=== PATIENT | female | born 1985 | race Caucasian/White ===

== ENCOUNTER 2018-03-30 13:22 | Emergency (ER) | payer OTHER ==
[2018-03-30 13:41] VITALS: O2SAT 100
[2018-03-30 14:09] VITALS: RESP 20
--- NOTE | 2018-03-30 14:42 | C.PDOC ---
History Of Present Illness Patient is a 32 year old female, with no medical problems, who presents to the ED c/o cough, sore throat, headache, and body aches that began 4 days ago. Patient states that she has not taken any medications for her symptoms. She denies any fever, SOB, nausea, vomiting, diarrhea, or sick contacts. HPI: Influenza Time Seen by Provider: 03/30/18 13:44 Chief Complaint: Flu-like Symptoms History Per: Patient Exam Limitations: no limitations Onset/Duration Of Symptoms: Days (3) Symptoms include: headache, bodyaches, sore throat, cough. denies: fever, vomiting, diarrhea, difficulty breathing Sick Contacts (Context): None Past Medical History Reviewed: Historical Data, Nursing Documentation, Vital Signs Vital Signs: Last Vital Signs Temp 98.3 F 03/30/18 13:36 Pulse 99 H 03/30/18 13:36 Resp 20 03/30/18 14:06 BP 106/74 03/30/18 13:36 Pulse Ox 100 03/30/18 13:36 - Medical History PMH: No Chronic Diseases Surgical History: No Surg Hx Family History: States: No Known Family Hx - Social History Hx Alcohol Use: No Hx Substance Use: No - Immunization History Hx Tetanus Toxoid Vaccination: No Hx Influenza Vaccination: No Hx Pneumococcal Vaccination: No Review Of Systems Constitutional: Positive for: Other (body aches ). Negative for: Fever ENT: Positive for: Throat Pain Respiratory: Positive for: Cough. Negative for: Shortness of Breath Gastrointestinal: Negative for: Nausea, Vomiting, Diarrhea Neurological: Positive for: Headache Physical Exam - Physical Exam Appears: Non-toxic, Other (uncomfortable ) Skin: No Rash Head: Atraumatic, Normacephalic Eye(s): bilateral: Normal Inspection, PERRL Ear(s): Bilateral: Normal Oral Mucosa: Moist Neck: Supple Chest: No Tenderness Cardiovascular: Rhythm Regular Respiratory: Normal Breath Sounds, No Rales, No Rhonchi, No Wheezing Gastrointestinal/Abdominal: Bowel Sounds (normoactive), Soft, No Tenderness, No Distention, No Guarding, No Rebound Back: No CVA Tenderness Extremity: Normal ROM, No Tenderness, No Swelling Neurological/Psych: Oriented x3, Normal Cognition Medical Decision Making Medical Decision Making: Plan: Tylenol 975 mg PO Diagnosis: flu like sx On 4th day of synptms, will not treat with Tamiflu - ECG O2 Sat by Pulse Oximetry: 100 (on RA) Pulse Ox Interpretation: Normal Disposition Counseled Patient/Family Regarding: Studies Performed, Diagnosis, Need For Followup - Disposition Referrals: [facility] [Outside] Disposition: HOME/ ROUTINE Disposition Time: 14:58 Condition: GOOD Additional Instructions: Beber lquidos en aumento. Tylenol 650 mg por va oral cada 4-6 horas para los erna y molestias. Yaquelin grgaras con agua salada caliente varias veces al da. Seguimiento en clnica mdica. , Drink increased fluids. Tylenol 650 mg by mouth every 4-6 hours for aches and pains. Gargle with warm salty water several times a day. Follow up in medical clinic. , Instructions: Flu, Adult (DC) Forms: Gen Discharge Inst Swedish, [employer] (Swedish) - Clinical Impression Clinical Impression: Influenza-like illness - PA / [employer] / Resident Statement MD/DO has examined the patient and agrees with the treatment plan. - Scribe Statement The provider has reviewed the documentation as recorded by the Scribdwayne Feliciano All medical record entries made by the Scribdwayne were at my direction and personally dictated by me. I have reviewed the chart and agree that the record accurately reflects my personal performance of the history, physical exam, medical decision making, and the department course for this patient. I have also personally directed, reviewed, and agree with the discharge instructions and disposition.
[2018-03-30 15:16] VITALS: BP 102/68; PULSE 89; TEMP 100.3
== END 2018-03-30 15:10 | disposition home or self-care (01) ==
LOC: C.ER 13:22
DX: J11.1 Influenza due to unidentified influenza virus with other respiratory manifestations (principal)